=== PATIENT | female | born 2000 | race American Indian/Alaskan Native ===

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

== ENCOUNTER 2024-02-24 11:16 | Emergency (ER) | payer MEDICAID ==
[~2024-02-24] VITALS: Ht 157.5 cm; Wt 57.7 kg
[~2024-02-24 11:16] MED LIST changes: -ACET-1988 PO; +ACET-3647 PO; +MAGN400O6 PO; +ONDA4TAB6 PO
[2024-02-24 11:36] VITALS: BP 121/69; PULSE 109; RESP 16; TEMP 98.7; O2SAT 96
[2024-02-24 12:37] LABS: BASOPHILS % (AUTO) 0.8 % (0-1); EOSINOPHILS # (AUTO) 0.3 X10'3 (0-0.9); EOSINOPHILS % (AUTO) 4.3 % (0-6); HEMATOCRIT 37.8 % (35.0-45.0); HEMOGLOBIN 12.8 g/dl (12.0-16.0); LYMPHOCYTES # (AUTO) 1.3 X10'3 (1.1-4.8); LYMPHOCYTES % (AUTO) 21.5 % (21-51); MEAN CORPUSCULAR HEMOGLOBIN 28.2 PG (27.0-31.0); MEAN CORPUSCULAR HGB CONC 33.7 g/dL (33.0-36.5); MEAN CORPUSCULAR VOLUME 83.5 FL (78-98); MEAN PLATELET VOLUME 8.5 FL (7.4-10.4); MONOCYTES # (AUTO) 0.6 X10'3 (0-0.9); MONOCYTES % (AUTO) 9.3 % (2-12); NEUTROPHILS # (AUTO) 3.8 X10'3 (1.8-7.7); NEUTROPHILS % (AUTO) 64.1 % (42-75); PLATELET COUNT 273 X10'3 (140-440); RED BLOOD COUNT 4.53 X10'6 (4.20-5.60); RED CELL DISTRIBUTION WIDTH 12.7 % (11.5-14.5); WHITE BLOOD COUNT 5.9 X10'3 (4.5-11.0)
[2024-02-24 12:52] LABS: ALANINE AMINOTRANSFERASE 18 U/L (12-78); ALBUMIN 3.5 G/DL (3.4-5.0); ALKALINE PHOSPHATASE 45 IU/L (46-116); ANION GAP 6 (8-16); ASPARTATE AMINO TRANSFERASE 10 U/L (10-37); BILIRUBIN,TOTAL 0.7 MG/DL (0.1-1.0); BLOOD UREA NITROGEN 8 MG/DL (7-18); CALCIUM 8.2 MG/DL (8.5-10.1); CHLORIDE 108 MMOL/L (99-107); GLUCOSE 85 MG/DL (70-104); POTASSIUM 3.9 MMOL/L (3.5-5.1); SODIUM 140 MMOL/L (135-145); TOTAL CARBON DIOXIDE 26.1 MMOL/L (24-32); TOTAL PROTEIN 6.9 G/DL (6.4-8.2); eCRCL 87 ML/MIN; eGFR 90 ML/MIN
== END 2024-02-24 13:33 | disposition home or self-care (01) ==
LOC: ER 11:16
DX: N93.9 Abnormal uterine and vaginal bleeding, unspecified (principal)
CPT/HCPCS: 36415; 80053; 85025; 99283

== ENCOUNTER 2024-03-17 15:32 | Outpatient (CLI) | payer MEDICAID | END 2024-03-17 23:59 | disposition home or self-care (01) | LOC: RAD 15:32 | PROVIDERS: ATTEND Physician Assistant | DX: N83.8 Other noninflammatory disorders of ovary, fallopian tube and broad ligament (principal); R10.2 Pelvic and perineal pain | CPT/HCPCS: 76830; 93976 ==

== ENCOUNTER 2025-03-30 11:14 | Emergency (ER) | payer MEDICAID, OTHER ==
[~2025-03-30] VITALS: Ht 160 cm; Wt 56.1 kg
[~2025-03-30 11:14] MED LIST changes: +ONDA-243 PO; -ONDA4TAB12 PO
[2025-03-30 11:18] VITALS: BP 116/85; PULSE 105; RESP 16; TEMP 98.3; O2SAT 97
[2025-03-30 11:37] LABS: BILIRUBIN,URINE NEGATIVE (Neg); CLARITY,URINE CLEAR (Clear); COLOR,URINE YELLOW (Yellow); GLUCOSE, URINE NEGATIVE (Neg); KETONES,URINE NEGATIVE (Neg); LEUKOCYTE ESTERASE ,URINE TRACE (Neg); NITRITES, URINE NEGATIVE (Neg); OCCULT BLOOD,URINE TRACE-INTACT (Neg); PROTEIN,URINE NEGATIVE (Neg); URINE HCG NEGATIVE (NEG); UROBILINOGEN,URINE 0.2 E.U/dL (0.2-1.0)
[2025-03-30 11:41] LABS: UA COLLECTION TYPE CLN CATCH MIDSTREAM
[2025-03-30 11:43] LABS: BACTERIA,URINE FEW /HPF (Neg); MUCUS STRANDS FEW /LPF (Neg); RBC,URINE 0-2 /HPF (0-2); SQUAMOUS EPITHELIAL CELL,UR MODERATE /LPF (FEW); TRANSITIONAL EPI CELLS,URINE FEW /HPF; WBC,URINE 0-4 /HPF (0-4)
[2025-03-30 11:48] LABS: BASOPHILS # (AUTO) 0.1 X10'3 (0-0.2); BASOPHILS % (AUTO) 0.8 % (0-1); EOSINOPHILS # (AUTO) 0.2 X10'3 (0-0.9); EOSINOPHILS % (AUTO) 2.9 % (0-6); HEMATOCRIT 38.4 % (35.0-45.0); HEMOGLOBIN 13.3 g/dl (12.0-16.0); LYMPHOCYTES # (AUTO) 1.7 X10'3 (1.1-4.8); LYMPHOCYTES % (AUTO) 27.1 % (21-51); MEAN CORPUSCULAR HEMOGLOBIN 28.6 PG (27.0-31.0); MEAN CORPUSCULAR HGB CONC 34.6 g/dL (33.0-36.5); MEAN CORPUSCULAR VOLUME 82.8 FL (78-98); MEAN PLATELET VOLUME 8.6 FL (7.4-10.4); MONOCYTES # (AUTO) 0.6 X10'3 (0-0.9); MONOCYTES % (AUTO) 9.2 % (2-12); NEUTROPHILS # (AUTO) 3.8 X10'3 (1.8-7.7); PLATELET COUNT 246 X10'3 (140-440); RED BLOOD COUNT 4.64 X10'6 (4.20-5.60); RED CELL DISTRIBUTION WIDTH 12.5 % (11.5-14.5); WHITE BLOOD COUNT 6.3 X10'3 (4.5-11.0)
[2025-03-30 12:02] LABS: ALANINE AMINOTRANSFERASE 19 U/L (12-78); ALBUMIN 4.1 G/DL (3.4-5.0); ALBUMIN/GLOBULIN RATIO 1.3 (1.1-1.5); ALKALINE PHOSPHATASE 54 IU/L (46-116); ANION GAP 9 (8-16); ASPARTATE AMINO TRANSFERASE 15 U/L (10-37); BILIRUBIN,TOTAL 0.4 MG/DL (0.1-1.0); BLOOD UREA NITROGEN 9 MG/DL (7-18); BUN/CREATININE RATIO 11.3 (10.0-20.0); CALCIUM 8.6 MG/DL (8.5-10.1); CHLORIDE 106 MMOL/L (99-107); GLUCOSE 89 MG/DL (70-104); LIPASE 38 U/L (16-77); POTASSIUM 4.1 MMOL/L (3.5-5.1); SODIUM 141 MMOL/L (135-145); TOTAL CARBON DIOXIDE 25.8 MMOL/L (24-32); TOTAL PROTEIN 7.3 G/DL (6.4-8.2); eCRCL 90 ML/MIN; eGFR 89 ML/MIN
--- NOTE | 2025-03-30 12:57 | Physician Documentation ---
History of Present Illness ~ Chief Complaint: Abdominal Pain w/vomiting Stated Complaint: STOMACH/BACK PAIN/VOMITING Time Seen by MD: 12:50 Primary Medical Doctor: Jessie capone HPI The patient Is seen today with complaints of acute onset of nausea vomiting and diarrhea just this morning. Patient states she started with nausea and vomiting 1st and then a few hours later progressed to diarrhea also. Patient states she has had multiple episodes of vomiting this morning in his not been able to keep or hold anything down since 6:00 a.m. this morning. Patient denies any chest pain or shortness of breath and has no other concern or complaint at this time. She denies any other sick contacts. Medication Reconciliation Allergies: Coded Allergies: No Known Allergies (Unverified , 11/10/19) Scheduled Antipyrine/Benzocaine/Glycerin (Aurodex Otic Solution), 4 DROP EACH EAR Q4H Carbamide Peroxide (Debrox), 5 DROP EACH EAR BID Ketoconazole (Ketoconazole), 1 APPLIC TP BID Magnesium Hydroxide (Milk of Magnesia), 15 ML PO Q12H ONDANSETRON ODT 4mg tablet (Ondansetron Odt), 1 TABLET PO QID Ondansetron Hcl (Zofran), 1 TAB PO Q6H Pantoprazole Sodium (PROTONIX tablet), 1 TABLET PO DAILY Scheduled PRN Acetaminophen (Children's Tylenol), 10 ML PO Q4H PRN for pain Ibuprofen (Children's Motrin), 10 ML PO TID PRN PRN for pain Past Medical History Past Medical History: No Pertinent History Past Surgical History: no surgical history Other Past Family History: none Alcohol Use: None Drug Use: none Lives with: Family Lives In: Home Occupation: student, child Review of Systems Constitutional: Denies: chills, fever, weakness Eyes: Denies: pain, blurred vision ENT: Denies: ear pain, nose pain, throat pain, mouth pain Respiratory: Denies: cough, shortness of breath Cardiovascular: Denies: chest pain, palpitations Gastrointestinal: Denies: abdominal pain, nausea, vomiting Genitourinary: Denies: burning, dysuria Female Genitalia: Denies: vaginal discharge, pelvic pain Neurological: Denies: headache, dizziness Musculoskeletal: Denies: pain, swelling Integumentary: Denies: rash, lesions Allergic/Immunologic: Denies: hives, itching Hematologic/Lymphatic: Denies: no symptoms reported Psychiatric: Denies: depression, anxiety Physical Exam Vital Signs: Temperature: 98.3, Source: Oral, Heart Rate: 105, Respiratory Rate: 16, BP: 116/85, Pulse Oximetry: 97, Weight: 56.100 Oxygen Flow Rate: 0 Physical Exam General: Awake and Alert, no acute distress. HEENT: Conjunctiva pink, Sclera clear, Mucus Membranes moist. Neck: Supple without masses and tenderness. Resp: Unlabored. Lungs clear to auscultation bilaterally. Heart: Regular Rate and rhythm, normal S1 and S2 without murmur, rub or gallop. Abdomen: On exam patient's abdomen is soft, nondistended, grossly nontender, no guarding, no rebound tenderness and no masses. Patient has very mild tenderness to palpation in the epigastric or upper abdominal area which is consistent with patient's history of recently vomiting multiple times and episodes. Extremities: No cyanosis,clubbing or edema. Skin: Warm and Dry. Progress Results/Orders Results/Orders Vital Signs 03/30/25 11:18 Temp 98.3 Pulse 105 Resp 16 B/P (MAP) 116/85 Pulse Ox 97 O2 Flow Rate 0 Laboratory Tests Test 03/30/25 11:22 03/30/25 11:39 Urine Specimen Description Cln catch midstream Urine Color Yellow Urine Clarity Clear Urine pH 6.0 Urine Specific Welch 1.025 Urine Protein Negative Urine Glucose (UA) Negative Urine Ketones Negative Urine Occult Blood Trace-intact Urine Nitrite Negative Urine Bilirubin Negative Urine Urobilinogen 0.2 Urine Leukocyte Esterase Trace H Urine RBC 0-2 Urine WBC 0-4 Urine Squamous Epithelial Cells Moderate Urine Transitional Epithelial Cells Few Urine Bacteria Few Urine Mucus Few Urine Culture Indicated Indicated Volume Urine Centrifuged 10 ml Urine HCG, Qualitative Negative Urine Comment White Blood Count 6.3 Red Blood Count 4.64 Hemoglobin 13.3 Hematocrit 38.4 Mean Corpuscular Volume 82.8 Mean Corpuscular Hemoglobin 28.6 Mean Corpuscular Hemoglobin Concent 34.6 Red Cell Distribution Width 12.5 Platelet Count 246 Mean Platelet Volume 8.6 Neutrophils (%) (Auto) 60.0 Lymphocytes (%) (Auto) 27.1 Monocytes (%) (Auto) 9.2 Eosinophils (%) (Auto) 2.9 Basophils (%) (Auto) 0.8 Neutrophils # (Auto) 3.8 Lymphocytes # (Auto) 1.7 Monocytes # (Auto) 0.6 Eosinophils # (Auto) 0.2 Basophils # (Auto) 0.1 CBC Comment Sodium Level 141 Potassium Level 4.1 Chloride Level 106 Carbon Dioxide Level 25.8 Anion Gap 9 Blood Urea Nitrogen 9 Creatinine 0.80 Estimated GFR/1.73 m2 89 BUN/Creatinine Ratio 11.3 Glucose Level 89 Calcium Level 8.6 Total Bilirubin 0.4 Aspartate Amino Transf (AST/SGOT) 15 Alanine Aminotransferase (ALT/SGPT) 19 Alkaline Phosphatase 54 Total Protein 7.3 Albumin 4.1 Globulin 3.2 Albumin/Globulin Ratio 1.3 Lipase 38 Chemistry Comments Microbiology Date/Time Source Procedure Growth Status 03/30/25 11:43 Urine Clean Catch Midstream Urine Culture - Preliminary Culture received. Resulted Medical Decision Making Findings The patient Is seen today with complaints of acute onset of nausea vomiting and diarrhea just this morning. Patient states she started with nausea and vomiting 1st and then a few hours later progressed to diarrhea also. Patient states she has had multiple episodes of vomiting this morning in his not been able to keep or hold anything down since 6:00 a.m. this morning. Patient denies any chest pain or shortness of breath and has no other concern or complaint at this time. She denies any other sick contacts. Patient denies any dysuria or urinary urgency or frequency and states she has absolutely no urinary symptoms. Patient states she has had urinary tract infections in the past and states she does not feel like she currently has a UTI. Shared decision-making utilized with the patient today. Patient likely has viral gastroenteritis that will self resolve and run its course. Patient will perform supportive care with increase rest and will advance diet and fluids as tolerated starting with seven upper william misha slowly. Patient will return to ED with any worsening, concerning or changing symptoms. Departure Disposition: 01 HOME / SELF CARE / HOMELESS Impression: Primary Impression: Viral gastroenteritis Condition: Stable Discharge Instructions: Viral Gastroenteritis, Adult, [id number] Additional Instructions: Shared decision-making utilized with the patient today. Patient likely has viral gastroenteritis that will self resolve and run its course. Patient will perform supportive care with increase rest and will advance diet and fluids as tolerated starting with seven upper william misha slowly. Patient will return to ED with any worsening, concerning or changing symptoms. Referrals: NO PRIMARY CARE PROVIDER (PCP) Signature Scribe Signature: No scribe Attestation: No scribe OLAMIDE LOPEZ [facility] March 30, 2025 12:57
== END 2025-03-30 13:01 | disposition home or self-care (01) ==
LOC: ER 11:14
DX: A08.4 Viral intestinal infection, unspecified (principal)
CPT/HCPCS: 36415; 80053; 81001; 81025; 83690; 85025; 87088; 99283